=== PATIENT | female | born 1975 | race Caucasian/White ===

== ENCOUNTER 2017-12-09 15:28 | Emergency (ER) | payer OTHER ==
[~2017-12-09] VITALS: Ht 165.1 cm; Wt 104.3 kg
[2017-12-09] MEDS ORDERED: NORCO 5-325 TA1 EACH PO (16:42)
[2017-12-09] MEDS ORDERED: CIPRO500 MG PO (16:42)
== END 2017-12-09 16:54 | disposition home or self-care (01) ==
LOC: ED 15:28
DX: N39.0 Urinary tract infection, site not specified (principal)
CPT/HCPCS: 80053; 81001; 84703; 85025; 87077; 87088; 87186; 96374; 99283; J1885; J7030